=== PATIENT | female | born 1975 | race Caucasian/White ===

== ENCOUNTER 2023-12-29 08:48 | Day surgery (SDC) | payer OTHER ==
[~2023-12-29] VITALS: Ht 162.6 cm; Wt 74.8 kg
[2023-12-29 09:33] LABS: HCG,QUAL RESULT NEGATIVE (NEGATIVE)
[2023-12-29] MEDS ORDERED: MIDAZOLAM HCL 5 MG/5 ML VIAL ONE (09:37)
[2023-12-29] MEDS ORDERED: MEPERIDINE 100 MG INJ. 100 MG/ML VIAL ONE (09:37)
[2023-12-29 10:30] VITALS: O2SAT 100
[2023-12-29] MEDS: ONDANSETRON HCL 4 MG/2 ML VIAL ONE (11:25)
[2023-12-29 13:33] VITALS: BP_SYST 110; PULSE 68; RESP 17
== END 2023-12-29 11:50 | disposition home or self-care (01) ==
LOC: SDS 08:48
PROVIDERS: ATTEND Student in an Organized Health Care Education/Training Program
DX: K62.5 Hemorrhage of anus and rectum (principal); K63.89 Other specified diseases of intestine; K63.5 Polyp of colon; R10.32 Left lower quadrant pain; K57.30 Diverticulosis of large intestine without perforation or abscess without bleeding; K64.8 Other hemorrhoids; K64.4 Residual hemorrhoidal skin tags; Z87.440 Personal history of urinary (tract) infections; Z98.890 Other specified postprocedural states
CPT/HCPCS: 45385; 99152; 84703; 88305; 99153; G0378; J2250; J2405; J2175